=== PATIENT | male | born 1980 | race Caucasian/White ===

== ENCOUNTER 2025-05-07 14:22 | Emergency (ER) | payer SELFPAY ==
--- NOTE | ~2025-05-07 | US_ITS ---
EXAMINATION: US LOWER EXTREMITY VEINS BILATERAL CLINICAL INFORMATION: BL edema, pain COMPARISON: None available. TECHNIQUE: Color-flow triplex imaging with spectral analysis and compression Doppler were performed on the bilateral lower extremities. FINDINGS: According to technologist's notes, limited views due to edema. The right distal femoral vein and bilateral peroneal veins could not be seen. The findings regarding the evaluated veins are as follows: Respiratory variation, normal compression and augmented flow are noted throughout the visualized bilateral lower extremities. The visualized common femoral vein, femoral vein, profunda femoral vein, popliteal vein and posterior tibial venous segments show no evidence of deep venous thrombosis bilaterally. US/US venous duplex LE BI IMPRESSION: No evidence of deep venous thrombosis involving the visualized bilateral lower extremities. Electronically signed by: Violette Mcnair MD 05/07/2025 04:41 PM EDT
--- NOTE | ~2025-05-07 | XR_ITS ---
CLINICAL HISTORY: Lower extremity edema, HTN 2 view chest x-ray Comparison: None provided Findings: No consolidation or effusion. Prominent cardiac silhouette. No acute fracture. IMPRESSION: 1. No acute findings. This document has been electronically signed by: Sree Tomlin MD on 05/07/2025 22:07:37
[2025-05-07 14:47] VITALS: BP 176/97; PULSE 87; RESP 16; TEMP 37.2; O2SAT 95; BMI 29.1
--- NOTE | 2025-05-07 14:47 | ED_ITS ---
HPI - General Adult General Chief complaint: Extremity Problem Stated complaint: Feet swelling Time Seen by Provider: 05/07/25 21:36 Source: patient Mode of arrival: ambulatory Limitations: no limitations History of Present Illness ED Provider: DR. Benitez HPI narrative: 44-year-old male presented for evaluation bilateral ankle/foot swelling x1 week. 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 No fever, chills, no recent animal or insect bites. Related Data Previous Rx's ?Medication ?Instructions ?Recorded amlodipine 5 mg tablet 5 mg PO DAILY #30 tabs 05/08 Allergies Allergy/AdvReac Type Severity Reaction Status Date / Time No Known Allergies Allergy Verified 05/07/25 14:51 Review of Systems 2 Review of Systems: All other systems are reviewed and are negative Constitutional: Reports as per HPI and Reports no additional constitutional complaints Eyes: Reports as per HPI and Reports no additional eye complaints Reports system reviewed and no additional complaints, except as documented Cardiovascular: Reports as per HPI and Reports no additional cardiovascular complaints Respiratory: Reports as per HPI and Reports no additional respiratory complaints Gastrointestinal: Reports as per HPI and Reports no additional gastrointestinal complaints Genitourinary: Reports no additional female genitourinary complaints Musculoskeletal: Reports no additional musculoskeletal complaints Skin/Breast: Reports system reviewed and no additional complaints, except as docu Psychiatric: Reports no additional psychiatric complaints Endocrine: Reports no additional endocrine complaints Hematologic/Lymphatic: Reports no additional hematologic/lymphatic complaints Allergic/Immunologic: Reports no additional allergic/immunologic complaints Reports system reviewed and no additional complaints, except as documented and Reports Abnormal speech present [facility] Social History Social History Advance Directives: No Advance Directives Information Provided: No Do you have a plan to hurt others: No Plan Physical Exam ED Vital Signs: Vital Signs - 24 hr 05/07/25 14:47 05/07/25 20:00 05/07/25 22:22 Temperature 99.0 F 98.8 F Pulse Rate 87 101 H 95 Respiratory Rate 16 20 23 H Blood Pressure 176/97 H 185/100 H 180/100 H Pulse Oximetry 95 98 97 Oxygen Delivery Method Room Air Room Air Room Air 05/08/25 01:06 Temperature Pulse Rate 92 Respiratory Rate 20 Blood Pressure 175/94 H Pulse Oximetry 97 Oxygen Delivery Method Room Air BMI result Body Mass Index 29.1 Vital signs have been reviewed and appear to be correct. Blood pressure elevated. Heart rate normal. Respiratory rate normal. Temperature normal. Oxygen saturation normal. Appearance: Alert. Oriented X3. No acute distress. Head: Normal external exam. Normocephalic. Atraumatic. No Ricardo signs noted. No raccoon eyes noted Eyes: PERRLA. EOMI. Conjunctiva and sclera normal. Eyelids normal. ENT: TM's Normal. Pharynx normal. Uvula midline. Moist mucous membranes. No trismus noted. No drooling noted. No muffled voice noted. Neck: Normal inspection. Neck supple. FROM. No adenopathy. Thyroid Normal. No meningeal signs. No neck mass noted. CVS: Normal heart rate and rhythm. Heart sound normal. No murmurs noted. Pulses normal throughout. Respiratory: No respiratory distress. Painless inspiration. Breath sounds normal. No wheezes/rales/rhonchi noted. Chest nontender. No accessory muscle usage noted or decreased air movement noted. Abdomen: Soft and nontender. Bowel sounds normal in all 4 quadrants. No distention noted. No organomegaly noted. No visible injury noted. Back: No CVA tenderness. Full range of motion noted. Skin: Skin warm and dry. Normal skin color. Normal skin turgor. No rashes/lesions/lacerations noted. Extremities: Bilateral +2 ankle edema, Extremities exhibit normal range of motion. Extremities nontender. Neuro: Oriented X 3. Cranial nerve exam: II-XII are grossly intact No motor deficit. No sensory deficit. Reflexes normal. Course Course Course Narrative: This is an RME: Additional HPI, ROS, PE not included below will be deferred to primary provider. RME assessment and note performed by: Sandra Hardwick PA-C This is a [id number], with no known medical hx, who presents to the ER with complaints of BL leg edema x 1 week. He reports that he drinks 1-2 pints of etoh daily, no hx of etoh withdrawal. Has not seen doctor in 20 years. Plan: Labs, US, further ER eval needed Reevaluation(s) Reevaluation #1: 1. Came in for evaluation of bilateral feet swelling, no SOB, no PND, chest x- ray not indicating for pulmonary embolism. 2. Essential hypertension patient has no PCP will start on amlodipine referred to [facility] for further management of blood pressure. 3. Hypomagnesemia, hypokalemia was repleted in the emergency department repeat lab reveals normal value of potassium and magnesium. 4. Transaminitis likely secondary to alcohol consumption I had a lengthy conversation with the patient of the effect of alcohol on liver patient stated that he is not willing to give up alcohol drinking at this point, patient was offered a rehab but declined and wanted to go home. Time: 01:02 Medications Administered Discontinued Medications Generic Name Dose Route Start Last Admin Trade Name Freq PRN Reason Stop Dose Admin Potassium Chloride 10 meq in 100 mls @ 100 mls/hr 05/07/25 21:43 05/08/25 00:09 Potassium Chloride/H20 IV 05/07/25 22:42 Infused ONCE ONE Infusion Magnesium Sulfate 2 gm in 50 mls @ 150 mls/hr 05/07/25 21:45 05/07/25 22:32 Magnesium Sulfate/H2o IV 05/07/25 22:04 Infused ONCE ONE Infusion Potassium Chloride 40 meq 05/07/25 21:43 05/07/25 22:12 Potassium Chloride Packet 20 Meq Packet PO 05/07/25 21:44 40 meq ONCE ONE Administration Medical Decision Making Differential Diagnosis Differential Diagnoses: The differential diagnosis associated with the presentation includes (DVT, congestive heart failure, alcoholic hepatitis, transaminitis, electrolyte derangement, severe anemia, essential hypertension, CKI.) Admission/Observation Consideration of admission/observation: Escalation of care including admission/observation considered Lab Data MDM Lab Attestation statement: I reviewed the patient's lab results. 05/07/25 17:47 05/07/25 23:49 Labs: Lab Results 05/07/25 05/07/25 Range/Units 17:47 23:49 WBC 8.7 (4.8-10.8) X10*3/uL RBC 3.98 L (4.60-5.80) X10*6/uL Hgb 13.4 L (14.0-18.0) g/dl Hct 37.2 L (42.0-52.0) % MCV 93.5 (80.0-98.0) fL MCH 33.7 H (27.0-33.0) pg MCHC 36.0 (31.0-36.0) g/dl RDW 14.5 (11.0-16.0) % Plt Count 281 (160-400) X10*3/uL MPV 9.4 (9.4-12.4) fL Immature Gran % (Auto) 0.5 H (0.0-0.4) % Neut % (Auto) 64.0 (45-73) % Lymph % (Auto) 25.8 (20-40) % [place] % (Auto) 8.2 (2-11) % Eos % (Auto) 0.8 (0-4) % Baso % (Auto) 0.7 (0-2) % Lymph # (Auto) 2.2 (1.2-4.9) X10*3/uL [place] # (Auto) 0.7 (0.1-1.2) X10*3/uL Eos # (Auto) 0.1 (0.0-0.4) X10*3/uL Baso # (Auto) 0.1 (0.0-0.2) X10*3/uL Abs Immat Gran (auto) 0.04 H (0.00-0.03) X10*3/uL Absolute Neuts (auto) 5.5 (2.0-8.3) x10*3/uL Absolute Nucleated RBC 0.000 (0.0-0.012) X10*3/uL Nucleated RBC % (auto) 0.0 (0.0-0.2) /100WBC Sodium 145 145 (135-145) mmol/L Potassium 2.6 L* 3.3 D (3.3-5.1) mmol/L Chloride 101 103 (96-108) mmol/L Carbon Dioxide 31 H 31 H (22-29) mmol/L Anion Gap 16 14 (12-20) BUN 6 L 7 L (9-16) mg/dL Creatinine 0.81 0.83 (0.5-1.4) mg/dL Estim Creat Clear Calc 135.3 132.1 Estimated GFR > 60 > 60 Random Glucose 110 114 (60-115) mg/dL Calcium 8.5 8.2 L (8.4-10.2) mg/dL Magnesium 1.5 L 2.1 (1.6-2.6) mg/dL Total Bilirubin 0.5 (0.0-1.0) mg/dL Direct Bilirubin 0.2 (0.0-0.5) mg/dL AST 114 H (5-37) U/L ALT 49 H (0-40) U/L Alkaline Phosphatase 148 H (39-117) U/L B-Natriuretic Peptide 120 H (<100) pg/mL Total Protein 7.4 (6.5-8.0) g/dL Albumin 4.0 (3.5-5.0) g/dL Lipase 16 (8-78) U/L Independent Interpretation I performed an independent interpretation of an: Plain X-Ray (Chest: No acute intrathoracic pathology.) Radiology Impression Discussion of test interpretation with radiology: I have reviewed the radiologist's reading. Critical Care Time Critical Care Time Critical Care Time: Yes Total Critical Care Time: 40 Attestation: The patient was critically ill with a high probability of imminent or life- threatening deterioration. I spent greater than 30 minutes of discontinuous time evaluating the patient, delivering critical care at the bedside, discussing evaluating data with consultants. Critical care time does not include time spent performing separately billable procedures or teaching. Time spent performing critical care was 40 minutes. Discharge Plan Discharge Clinical Impression: Lower extremity edema, Transaminitis, Hypomagnesemia, Acute hypokalemia Patient Disposition: Home, Self-Care Instructions: Potassium Content of Foods List (ED), Hypokalemia (ED), Hypertension (ED), Hypomagnesemia (ED), Edema (ED) Additional Instructions: Eat 1 banana/orange a day to replace your potassium and magnesium. You have been prescribed new medicine to control his blood pressure. Be aware that drinking alcohol started to affect her liver function and can be attributed to your feet swellings. It is time to seriously consider give up alcohol drinking. Prescriptions: New amlodipine 5 mg tablet 5 mg PO DAILY Qty: 30 0RF Referrals: [facility] [Physician, Medical] Print Language: Sami
[2025-05-07 17:52] LABS: MANUAL DIFF FLAG NO
[2025-05-07 18:11] LABS: Hematocrit 37.2 % (42.0-52.0); Hemoglobin 13.4 g/dl (14.0-18.0); Imm Gran Abs Auto 0.04 X10*3/uL (0.00-0.03); Imm Gran Pct Auto 0.5 % (0.0-0.4); Lymphocytes Absolute Auto 2.2 X10*3/uL (1.2-4.9); Mean Corpuscular HGB Conc 36.0 g/dl (31.0-36.0); Mean Corpuscular Hemoglobin 33.7 pg (27.0-33.0); Mean Corpuscular Volume 93.5 fL (80.0-98.0); NRBC Abs Auto 0.000 X10*3/uL (0.0-0.012); NRBC Pct Auto 0.0 /100WBC (0.0-0.2); Platelet Count 281 X10*3/uL (160-400); Red Blood Count 3.98 X10*6/uL (4.60-5.80); White Blood Count 8.7 X10*3/uL (4.8-10.8)
[2025-05-07 18:16] LABS: Alanine Aminotransferase 49 U/L (0-40); Albumin Level 4.0 g/dL (3.5-5.0); Alkaline Phosphatase 148 U/L (39-117); Anion Gap 16 (12-20); Aspartate Amino Transferase 114 U/L (5-37); Blood Urea Nitrogen 6 mg/dL (9-16); Calcium 8.5 mg/dL (8.4-10.2); Carbon Dioxide 31 mmol/L (22-29); Chloride 101 mmol/L (96-108); Creatinine Clr Calc Pharmacy 135.3; Estimated Glomerular Filt Rate > 60; Lipase 16 U/L (8-78); Magnesium 1.5 mg/dL (1.6-2.6); Potassium 2.6 mmol/L (3.3-5.1); Sodium 145 mmol/L (135-145); Total Protein 7.4 g/dL (6.5-8.0)
[2025-05-07 18:17] LABS: B Type Natriuretic Peptide 120 pg/mL (<100)
--- NOTE | 2025-05-07 18:42 | ECG_ITS ---
Test Reason : hypokalmeia Blood Pressure : */* mmHG Vent. Rate : 94 BPM Atrial Rate : 94 BPM P-R Int : 144 ms QRS Dur : 68 ms QT Int : 394 ms P-R-T Axes : * 114 133 degrees QTcB Int : 492 ms Normal sinus rhythm Right axis deviation Possible Anterior infarct , age undetermined Abnormal ECG No previous ECGs available Referred By: Sandra Hardwick Electronically Signed By: Salbador Pretty
[2025-05-07 20:00] VITALS: BP 185/100; PULSE 101; RESP 20; TEMP 37.1; O2SAT 98
[2025-05-07] MEDS: Magnesium Sulfate/H2O 2 GM/50 ML PIGGYBACK IV (22:12)
[2025-05-07] MEDS: Potassium Chloride Packet 20 MEQ PACKET 40 MEQ PO (22:12)
[2025-05-07 22:22] VITALS: BP 180/100; PULSE 95; RESP 23; O2SAT 97
[2025-05-07] MEDS: Potassium Chloride/H20 10 MEQ/100 ML PIGGYBACK 100 MEQ IV (22:45)
--- NOTE | 2025-05-07 23:14 | PC.NURSE ---
assumed care of patient. patient resting comfortably , no complaints. IV potassium infusing.
[2025-05-08 00:11] LABS: Anion Gap 14 (12-20); Blood Urea Nitrogen 7 mg/dL (9-16); Calcium 8.2 mg/dL (8.4-10.2); Carbon Dioxide 31 mmol/L (22-29); Chloride 103 mmol/L (96-108); Creatinine Clr Calc Pharmacy 132.1; Estimated Glomerular Filt Rate > 60; Magnesium 2.1 mg/dL (1.6-2.6); Potassium 3.3 mmol/L (3.3-5.1); Sodium 145 mmol/L (135-145)
[2025-05-08 01:06] VITALS: BP 175/94; PULSE 92; RESP 20; O2SAT 97
[2025-05-08 01:08] VITALS: BP 175/94; PULSE 92; RESP 20; TEMP 37.1; O2SAT 97
== END 2025-05-08 01:18 | disposition home or self-care (01) ==
PROVIDERS: Physician Assistant Medical; Emergency Provider Emergency Medicine
DX: E87.6 Hypokalemia (principal); E83.42 Hypomagnesemia; R74.01 Elevation of levels of liver transaminase levels; M79.605 Pain in left leg; R60.0 Localized edema
CPT/HCPCS: 36415; 71046; 80048; 80076; 83690; 83735; 83880; 85025; 93005; 93970; 96365; 96366; 96367; 99284; J3475; J3480

== ENCOUNTER → 2025-05-07 14:51 | Outpatient (BNV) | payer SELFPAY | PROVIDERS: Visit Provider Radiology Body Imaging | DX: I10 Essential (primary) hypertension (principal); R60.0 Localized edema | CPT/HCPCS: 71046; 93970 ==

== ENCOUNTER → 2025-05-07 18:42 | Outpatient (BNV) | payer SELFPAY | PROVIDERS: Emergency Provider Emergency Medicine; Visit Provider Internal Medicine Cardiovascular Disease | DX: R94.31 Abnormal electrocardiogram [ECG] [EKG] (principal); E87.6 Hypokalemia | CPT/HCPCS: 93010 ==